=== PATIENT | male | born 1965 | race Two or more races ===

== ENCOUNTER 2020-03-24 13:13 | Outpatient (CLI) | payer OTHER | END 2020-03-24 13:21 | disposition home or self-care (01) | LOC: NUCLEAR 13:13 | PROVIDERS: ATTEND Internal Medicine Sports Medicine | DX: C73 Malignant neoplasm of thyroid gland (principal) | CPT/HCPCS: 79005; A9517 ==

== ENCOUNTER 2020-03-31 13:26 | Outpatient (CLI) | payer OTHER | END 2020-03-31 13:28 | disposition home or self-care (01) | LOC: NUCLEAR 13:26 | PROVIDERS: ATTEND Internal Medicine Sports Medicine | DX: C73 Malignant neoplasm of thyroid gland (principal) ==